=== PATIENT | male | born 1975 | race Caucasian/White ===

== ENCOUNTER → 2019-08-09 | Outpatient (CLI) | payer OTHER ==
[~2019-08-09] MED LIST: AMLO10TA8 PO; ATOM80CA PO; BENZ1LOZ48 PO; CHOL200078 PO; DIPH25TA24 PO; ONDA4TAB12 PO
--- NOTE | 2019-08-09 12:29 | PAIN ---
DATE OF SERVICE: 08/09/2019 INITIAL CONSULTATION FOR PAIN CLINIC CHIEF COMPLAINT: Low back and left lower extremity pain. 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 The patient reports that he had significant physical therapy at that time, stretching and strengthening that the pain got better, but never completely gone. The patient reports that over the past 4 months or so, the pain gradually began to get worse in the low back and left lower extremity, posterior gluteus, posterolateral thigh, lateral anterior thigh, anterior medial thigh, medial lower leg as well as in the calf on the left side. The patient reports it is intermittent in intensity, changes during the day with tingling and numbness, radiating down into the left leg as well as goes into the foot with numbness and tingling in all the toes. The patient reports no overt weakness, but significant fatigability with walking, standing and changing positions with the left leg only. The patient reports right leg has no significant symptoms. The patient reports his disability rating from 0-10, 10 being the worst, is a 7 with family and home responsibilities, 9 with recreation, 0 with social activity, 5 with occupational activities, 0 with self-care and 0 with life support activities. The patient reports he had an MRI scan, however, the report of that is not available at time of this dictation and we are trying to obtain those results in the meantime. The patient reports no loss of motor function, but significant fatigability is noted. He has to sit down as much as possible. It is better with sitting or lying down, generally does not awaken him from sleep at night, does not affect his bowel or bladder control, but does affect his ability to walk fairly significantly. He is not using any assistive devices, however. Again, the patient did have physical therapy completed in about one month ago without significant improvement in the radicular pain in the left lower extremity. PAST MEDICAL HISTORY: Significant for hypertension; cigarette smoking, quit in 2014. The patient has been in fairly good health. PREVIOUS SURGERY: Include an abscess drain in the back in 2019, LASIK procedure in 2009 and vasectomy in 2006. CURRENT MEDICATIONS: Include Zofran, Cepacol lozenges, amlodipine, Strattera vitamins, diphenhydramine. ALLERGIES: The patient has no known drug allergies. FAMILY HISTORY: Significant for cancers. SOCIAL HISTORY: The patient does not drink alcohol, did prior to service; does not smoke, quit about 5 years ago; is not using any illegal, illicit or recreational drugs. He is single, is active duty, is currently in custody. REVIEW OF SYSTEMS: The patient's review of systems is positive for those items mentioned in history of present illness. All systems reviewed and otherwise negative. It is complete, full and well documented on the patient's chart. PHYSICAL EXAMINATION: VITAL SIGNS: The patient's blood pressure 191/84, pulse 77, respirations 18, temperature 98.6 degrees Fahrenheit, height is 5 feet 11 inches, weight is 246 pounds. GENERAL: The patient is awake, alert, oriented, appropriate, very pleasant demeanor. HEENT: Head shows normocephalic, atraumatic. Extraocular movements are intact and symmetrical. Oral cavity: Mucous membranes moist and pink. Dentition is intact. NECK: Shows anterior throat supple without palpable lymphadenopathy noted. Swallow reflex symmetrical. CHEST: Shows normal on inspection. Breath sounds are clear to auscultation bilaterally. HEART: Shows S1, S2 clear. No murmurs auscultated. ABDOMEN: Obese, soft, nontender, nondistended. No palpable organomegaly is noted. No rebound or guarding demonstrated. BACK: Shows spine grossly in midline. Normal appearing thoracic kyphosis and lumbar lordotic curvature. Lumbar paraspinous muscle shows symmetrical on inspection, on palpation shows some moderate tenderness diffusely, but only in the low lumbar distribution, only very mildly. The patient shows no radiation of pain, shows good rotational motion of lumbar spine, both laterally greater than 10 degrees right and left as well as extension greater than 10 degrees, forward flexion 45 degrees without significant pain reported. The patient shows no tenderness over the spinous processes, sacrum or sacroiliac regions. EXTREMITIES: The patient's lower extremities show deep tendon reflexes 2+ in the patellar, 1+ tendo-calcaneus tendons. Motor exam is strong with 5/5 dorsiflexion, extension, quadriceps and hamstring flexion. Peripheral pulses are 1+ posterior tibia. No peripheral edema is noted. Lower extremities are warm and dry to touch, equal in color and appearance. Gaenslen's and Jarett's maneuvers are noted to be negative bilaterally. The patient has a very mild straight leg raise on the left side at about 45 degrees, which is decreased completely with knee flexion, right side is negative. The patient is able to stand, stand on his toes without difficulty or loss of balance, walks with a normal appearing gait without any assistive devices. Does not appear to favor the right or left lower extremities. The patient's skin shows warm and dry, good turgor. No edema. No sores, rashes or bruising. IMPRESSION: 1. This is a 43-year-old male with approximate 4-5 month history of increasing pain in low back, left lower extremity in a radicular fashion. 2. MRI scan results are pending. 3. Hypertension. PLAN: Options were discussed with the patient including conservative medical managements, continued physical therapies and interventional techniques. He would like to pursue interventional techniques. We discussed a lumbar epidural steroid injection using description as well as anatomical models to describe the procedure. The patient will wait for preauthorization with his insurance provider. Once this is obtained, the patient return for lumbar epidural steroid injection at that time, it was clinical L4-L5 radiculopathy on the left. In the meantime, the patient will continue with stretching and strengthening exercises, activity as tolerated and exercise as tolerated. OMAR GÓMEZ MD DR: TYRESE/logan JOB#: [id number] / [id number]
== END | disposition home or self-care (01) ==
LOC: PNCL 07:56 → EEVIPCON 08:00
PROVIDERS: ATTEND Anesthesiology
DX: M54.16 Radiculopathy, lumbar region (principal); M54.5 Low back pain; I10 Essential (primary) hypertension; F17.210 Nicotine dependence, cigarettes, uncomplicated
CPT/HCPCS: G0463

== ENCOUNTER → 2019-11-28 | Outpatient (CLI) | payer OTHER ==
[~2019-11-28] MED LIST changes: +DICL100G54 TP; +IOHEXOL 180 MG/ML 10 ML VIAL. ONE; +TRAM-48 PO; +methylPREDNISolone ACETATE 40 MG/ML VIAL. ONE; +methylPREDNISolone ACETATE 80 MG/ML VIAL. ONE
--- NOTE | 2019-11-28 09:36 | PAIN ---
DATE OF SERVICE: 11/28/2019 PROGRESS NOTE FOR PAIN CLINIC DIAGNOSIS: Lumbar radiculopathy with lumbar degenerative disk disease. HISTORY OF PRESENT ILLNESS: The patient is a 44-year-old male who returns for followup status post previous evaluation and preauthorization for lumbar epidural steroid injection. The patient has obtained that now, last seen 08/09/2019 with pain in the low back, left lower extremity, posterior gluteus, posterior thigh, lateral thigh, anterior thigh, medial thigh, medial lower leg and calf. The patient reports it is still painful with walking, standing, changing positions, awakens him from sleep occasionally, but not most nights. The patient reports it is a shooting pain, described as aching and dull, sharp and cramping at times in the back. The patient reports it is a 10 on a scale of 10 at its worse over the past week, 8 on average and a 3 at its least and is an 8 today. The patient reports no new motor or sensory deficits, no new bowel or bladder incontinence or other complaints. PHYSICAL EXAMINATION: VITAL SIGNS: The patient's blood pressure 129/79, pulse 67, respirations 16, temperature is 98.3 degrees Fahrenheit, height is 5 feet 11 inches, weight is 232 pounds. GENERAL: The patient is awake, alert, oriented, appropriate, very pleasant demeanor. HEENT: Shows normocephalic, atraumatic. Extraocular movements are intact and symmetrical. Oral cavity: Mucous membranes moist and pink. Dentition is intact. NECK: Shows anterior throat supple without palpable lymphadenopathy noted. Swallow reflex symmetrical. CHEST: Shows normal on inspection. Breath sounds clear to auscultation bilaterally. HEART: Shows S1, S2 clear. No murmurs auscultated. ABDOMEN: Soft, nontender, nondistended. No palpable organomegaly is noted. No rebound or guarding demonstrated. BACK: Shows spine grossly in the midline. Normal appearing thoracic kyphosis and lumbar lordotic curvature. Lumbar paraspinous muscle shows symmetrical on inspection, with palpation shows some moderate tenderness diffusely bilaterally, but only diffusely without significant radiation. The patient has good rotational motion of lumbar spine, both laterally as well as extension and flexion without significant increase in pain or difficulty. EXTREMITIES: The patient's lower extremities show deep tendon reflexes at 2+ patellar, 1+ tendo-calcaneus tendons. Motor exam is strong with 5/5 dorsiflexion, extension, quadriceps and hamstring flexion and symmetrical. Peripheral pulses are 1+ posterior tibia. No peripheral edema is noted bilaterally. Options were discussed with the patient. The patient's old chart was reviewed as his current medication regimen updated. Current review of systems updated today as well and we will proceed with a lumbar epidural steroid injection today with fluoroscopic guidance. Risks were again discussed including, but not limited to bleeding, infection, possibility of epidural hematoma, subsequent neurological compromise, dural puncture, headaches, spinal cord and/or nerve damage, side effects of steroid medication and poor results regarding pain control. The patient understands and wished to proceed. The patient will return to the clinic in approximately 2 weeks for followup. He was counseled on return appointment, activity level and side effects to be aware of. DIAGNOSIS: Lumbar radiculopathy with lumbar degenerative disk disease. PROCEDURE: Lumbar epidural steroid injection, translaminar approach at L4-L5 level using C-arm fluoroscopic guidance under sterile prep and drape using local anesthetic. MEDICATION INJECTED: A total of 120 mg Depo-Medrol plus 10 mL of preservative-free normal saline and 2 mL of contrast. CONDITION AT DISCHARGE: Stable. The patient tolerated procedure well, had no complications. OMAR GÓMEZ MD DR: TYRESE/logan JOB#: [id number] / [id number]
== END ==
LOC: PNCL 07:34 → EEVIPCON 08:00
PROVIDERS: ATTEND Anesthesiology
DX: M51.16 Intervertebral disc disorders with radiculopathy, lumbar region (principal)
CPT/HCPCS: 62323; J1030; J1040; Q9965